=== PATIENT | female | born 1940 | race Caucasian/White ===

== ENCOUNTER 2023-08-17 07:13 | Emergency (ER) | payer MEDICARE ==
[~2023-08-17] VITALS: Ht 165.1 cm; Wt 68.2 kg
[2023-08-17] VITALS (11 sets, daily range): BP systolic 139–162; BP diastolic 63–81
[~2023-08-17 07:13] MED LIST: ARICEPT10 MG PO; BAYER ASPIRIN E81 MG PO; CLINDAMYCIN150 MG PO; CLOTRIMAZOLE10 MG MT; LOVASTATIN40 MG PO; MACROBID100 MG PO; METOPROL TAR50 MG PO; NEURONTIN100 MG PO; PRILOSEC20 MG PO; PYRIDIUM200 MG PO; SERTRALINE50 MG PO; SYNTHROID100 MCG PO; SYNTHROID75 MCG PO; ZOLOFT100 MG PO
[2023-08-17] MEDS ORDERED: SODIUM CHLORIDE 0.9% 1,000 ML IV ONE (07:30)
[2023-08-17 07:56] LABS: BASO% 0.8 % (0-3); EOS% 3.3 % (0-8); HEMATOCRIT 42.5 % (37.0-47.0); HEMOGLOBIN 13.5 g/dl (12.0-16.0); IMMATURE GRANULOCYTES 0.2 % (0.0-5.0); LYMPH% 25.9 % (15-41); MEAN CELL VOLUME 96.4 fL CALC (80.0-100.0); MEAN CORPUSCULAR HGB 30.6 pG CALC (26.0-32.0); MEAN CORPUSCULAR HGB CONC 31.8 g/dL CAL (32.0-36.0); MONO% 6.7 % (2-13); NEUT# 4.08 thou/uL (2.00-7.15); NEUT% 63.1 % (42-76); RED BLOOD COUNT 4.41 mill/uL (4.20-5.60); RED CELL DISTRI WIDTH 12.8 % (11.5-15.5)
[2023-08-17 08:06] LABS: URINE BILIRUBIN - DIPSTICK Negative (NEGATIVE); URINE BLOOD DIPSTICK Negative (NEGATIVE); URINE GLUCOSE - DIPSTICK 100 mg/dL (NEGATIVE); URINE KETONE Negative (NEGATIVE); URINE NITRITE - DIPSTICK Negative (Negative); URINE PROTEIN - DIPSTICK Negative (NEG-TRACE)
[2023-08-17 08:07] LABS: ALBUMIN 4.4 g/dL (3.2-5.0); ALKALINE PHOSPHATASE 87 u/l (38-126); ANION GAP 10 (6-22 (CALC)); BUN 23 mg/dL (8-23); BUN/CREATININE RATIO 29 (12-20 (CALC)); CARBON DIOXIDE 24 mmol/l (22-30); CHLORIDE 109 mmol/l (95-108); CREATININE 0.8 mg/dL (0.5-1.0); ESTIMATED GFR 73 ML/MIN (>=90 (CALC)); ETHYL ALCOHOL 0 mg/dl (0-30); POTASSIUM 3.9 mmol/l (3.5-5.1); SGOT/AST 30 u/l (9-36); SODIUM 140 mmol/l (137-146); TOTAL PROTEIN 7.6 g/dL (6.3-8.2)
[2023-08-17 08:08] LABS: BILIRUBIN, TOTAL 0.9 mg/dL (0.02-1.3)
[2023-08-17 08:09] LABS: URINE COLOR Yellow; URINE LEUK ESTERASE Small (NEGATIVE)
[2023-08-17 08:10] LABS: URINE BACTERIA FEW hpf; URINE EPITHELIAL CELLS FEW EPI/hpf (0-FEW)
[2023-08-17] MEDS ORDERED: METFORMIN500 M2 PO (08:12)
[2023-08-17] MEDS ORDERED: MACRODANTIN100 MG PO (10:13)
== END 2023-08-17 10:56 | disposition home or self-care (01) ==
LOC: ED 07:13
PROVIDERS: Family Medicine
DX: G30.9 Alzheimer's disease, unspecified (principal); F02.80 Dementia in other diseases classified elsewhere, unspecified severity, without behavioral disturbance, psychotic disturbance, mood disturbance, and anxiety; N39.0 Urinary tract infection, site not specified